=== PATIENT | female | born 1985 | race Two or more races ===

== ENCOUNTER 2019-08-23 21:00 | Emergency (ER) | payer SELFPAY ==
[~2019-08-23] VITALS: Ht 162.6 cm; Wt 79.4 kg
[~2019-08-23 21:00] MED LIST: LEVO125T66
[2019-08-23 22:51] VITALS: BP 113/60
[2019-08-23] MEDS ORDERED: cefTRIAXone SOD 1,000 MG VL IM ONE (23:00)
[2019-08-23] MEDS ORDERED: ACETAMINOPHEN/CODEINE#3 (300/30mg) TAB PO ONE (23:00)
[2019-08-23] MEDS ORDERED: DexAMETHasone SOD PHOS 10MG/1ML VIAL INJ IM ONE (23:00)
[2019-08-23] MEDS ORDERED: SILVER SULFADIAZINE 1 % TOPICAL CREAM 50GM TOP ONE (23:00)
== END 2019-08-23 23:54 | disposition home or self-care (01) ==
LOC: ER 21:02
DX: T20.17XA Burn of first degree of neck, initial encounter (principal); T22.112A Burn of first degree of left forearm, initial encounter; T22.111A Burn of first degree of right forearm, initial encounter; E07.9 Disorder of thyroid, unspecified; Z79.899 Other long term (current) drug therapy; Z88.0 Allergy status to penicillin; Z88.8 Allergy status to other drugs, medicaments and biological substances; X10.2XXA Contact with fats and cooking oils, initial encounter; Y93.G3 Activity, cooking and baking; Y92.89 Other specified places as the place of occurrence of the external cause; Y99.8 Other external cause status
CPT/HCPCS: 16000; 96372; 99284; J0696; J1100

== ENCOUNTER 2021-07-10 12:26 | Emergency (ER) | payer OTHER ==
[~2021-07-10] VITALS: Ht 162.6 cm; Wt 78.5 kg
[~2021-07-10 12:26] MED LIST changes: +LEVO125T; -LEVO125T66
[2021-07-10 13:07] VITALS: BP 132/83
[2021-07-10] MEDS ORDERED: IBUPROFEN 800 MG TAB PO ONE (13:15)
== END 2021-07-10 13:36 | disposition home or self-care (01) ==
LOC: ER 12:26
DX: S39.012A Strain of muscle, fascia and tendon of lower back, initial encounter (principal); S60.212A Contusion of left wrist, initial encounter; Z88.0 Allergy status to penicillin; Z88.8 Allergy status to other drugs, medicaments and biological substances; V43.62XA Car passenger injured in collision with other type car in traffic accident, initial encounter; Y93.89 Activity, other specified; Y92.410 Unspecified street and highway as the place of occurrence of the external cause; Y99.8 Other external cause status
CPT/HCPCS: 73110